=== PATIENT | female | born 1990 | race Caucasian/White ===

== ENCOUNTER → 2025-06-20 16:28 | Outpatient (REF) | payer OTHER, SELFPAY | LOC: RAD 16:28 | PROVIDERS: ATTENDING PHYSICIAN Physician Assistant Medical | DX: M76.32 Iliotibial band syndrome, left leg (principal) | CPT/HCPCS: 73502 ==

== ENCOUNTER → 2025-07-15 13:35 | Outpatient (REF) | payer OTHER, SELFPAY | LOC: RAD 13:35 | PROVIDERS: ATTENDING PHYSICIAN Internal Medicine; FAMILY PHYSICIAN Family Medicine | DX: K90.0 Celiac disease (principal); E53.8 Deficiency of other specified B group vitamins; E55.9 Vitamin D deficiency, unspecified | CPT/HCPCS: 77080 ==